=== PATIENT | male | born 1970 | race Caucasian/White ===

== ENCOUNTER 2018-08-09 15:18 | Emergency (ER) | payer SELFPAY ==
[~2018-08-09] VITALS: Wt 135.5 kg
[~2018-08-09 15:18] MED LIST: ACET1TAB40 PO; CELE100C PO
[2018-08-09 15:37] VITALS: BP 170/100; PULSE 85; RESP 19
[2018-08-09] MEDS ORDERED: CYCL10TA7 PO (16:49)
[2018-08-09] MEDS ORDERED: IBUP800T48 PO (16:49)
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
== END 2018-08-09 17:06 | disposition home or self-care (01) ==
LOC: FTE 15:18
DX: R06.02 Shortness of breath (principal)
CPT/HCPCS: 99283